=== PATIENT | female | born 1955 | race Caucasian/White ===

== ENCOUNTER 2020-12-03 09:35 | Emergency (ER) | payer MEDICARE, OTHER ==
[~2020-12-03] VITALS: Ht 165.1 cm; Wt 83.0 kg
[~2020-12-03 09:35] MED LIST: ALDACTONE25 MG PO; ARMOUR THYROID90 M1 PO; CALCIUM 500 +1 EAC5 PO; CINNAMON PO; CO Q-1010 MG PO; COLACE100 MG PO; COLESTID1 GM PO; CRESTOR5 MG PO; ESTRACE0.5 MG; KEFLEX500 MG PO; LOSARTAN POTASS50 MG PO; METFORMIN PO; METHYLGUARD; MINIPRIN81 MG PO; NIASPAN PO; NORVASC 5 MG TAB5 MG PO; PAROXETINE HCL20 MG PO; PAXIL10 MG PO; PEPCID40 MG PO; PRILOSEC40 MG PO; PROBIOTIC1 EAC1 PO; PROBIOTIC1 EACH; RED YEAST RICE600 MG; THYROID COMPLEX; TRILIPIX45 MG PO; VITAMIN D1000 UNI1; [UNRECOGNIZED DRUG - OTHER]
[2020-12-03] MEDS ORDERED: REPATHA SU140 MG/1 M SUBQ (09:44)
[2020-12-03] MEDS ORDERED: ZETIA10 MG PO (09:45)
[2020-12-03] MEDS ORDERED: LEVOTHYROXINE100 MC2 PO (09:46)
[2020-12-03] MEDS ORDERED: FISH OIL 1,001000 M3 PO (09:46)
[2020-12-03 10:10] LABS: ABSOLUTE EOSINOPHILS 0.2 thou/uL (0.0-0.7); ABSOLUTE LYMPHOCYTES 2.6 thou/uL (0.8-5.3); ABSOLUTE MONOCYTES 0.4 thou/uL (0.0-1.2); ABSOLUTE NEUTROPHILS 2.7 thou/uL (1.6-8.1); BASOPHILS 0.7 %; EOSINOPHILS 3.3 %; HEMATOCRIT 40.4 % (37.0-47.0); HEMOGLOBIN 14.2 gm/dL (12.0-15.0); LYMPHOCYTES 43.2 %; MCH 33.3 pg (26.0-34.0); MONOCYTES 7.2 %; MPV 8.7 fl. (7.2-11.1); NUCLEATED RBCS 0 /100WBC; PLATELET COUNT* 245 thou/uL (150-400); POLYS 45.6 %; RBC 4.25 mil/uL (4.20-5.00); RDW-CV 12.7 % (10.5-14.5)
[2020-12-03 10:20] LABS: CALCIUM 8.9 mg/dL (8.5-10.1); POTASSIUM 4.2 mmol/L (3.5-5.1)
[2020-12-03 10:34] LABS: ALBUMIN 4.7 g/dL (3.4-5.0); CK-MB MASS 1.3 ng/mL (<0.5-3.6); TOTAL BILIRUBIN 0.6 mg/dL (<0.1-1.0); TOTAL PROTEIN 8.2 g/dL (6.4-8.2)
[2020-12-03 11:01] VITALS: BP 116/67
--- NOTE | 2020-12-03 15:45 | EKG ---
[place] [address] ELECTROCARDIOGRAM REPORT Name: PRISCA FONTANEZ Room: [facility]#: [id number] Admission: 12/03/20 Attend Phys: Discharge: 12/03/20 Date of : 53 Date of Service: 12/03/20 0940 Report #: [id number] THIS REPORT FOR: //name// [facility] ED Test Date: 2020-12-03 Test Time: 09:40:44 Pat Name: PRISCA FONTANEZ Department: Room: Gender: F Java User Interface Developer: Janeen Hunt : 1955 Requested By: Mark Rice Order Number: [id number] MD: Vincenzo Hwang Measurements Intervals [place] Rate: 74 P: 65 ND: 167 QRS: 95 QRSD: 77 T: -15 QT: 390 QTc: 433 Interpretive Statements Sinus rhythm Right axis deviation Borderline T abnormalities, diffuse leads Baseline wander in lead(s) III Compared to ECG 08/09/2010 01:17:40 Possible ischemia no longer present T-wave abnormality still present Electronically Signed On 12-03-2020 15:45:17 CDT by Vincenzo Hwang [email or web address] <ELECTRONICALLY SIGNED> By: Vincenzo Hwang MD, [facility] 12/03/20 1545 0940 Vincenzo Hwang MD, [facility] /EPI
== END 2020-12-03 11:01 | disposition home or self-care (01) ==
LOC: M.ERS 09:35
PROVIDERS: Family Medicine
DX: R07.89 Other chest pain (principal); R20.2 Paresthesia of skin; I10 Essential (primary) hypertension; E03.9 Hypothyroidism, unspecified; Z88.1 Allergy status to other antibiotic agents; Z79.2 Long term (current) use of antibiotics; Z79.82 Long term (current) use of aspirin; Z79.899 Other long term (current) drug therapy; Z90.710 Acquired absence of both cervix and uterus; Z90.89 Acquired absence of other organs